=== PATIENT | male | born 1940 | race Two or more races ===

== ENCOUNTER 2022-10-05 14:40 | Inpatient (IN) | payer MEDICARE ==
[~2022-10-05] VITALS: Ht 160 cm; Wt 62.6 kg
[2022-10-05] MEDS: DEXAMETHASONE 10 MG/ML VIAL IV NR ×2 (15:45→16:45)
[2022-10-05] MEDS ORDERED: IPRATROPIUM BROMIDE (0.02%) 0.5MG/2.5ML NEB HHN NR (15:45)
[2022-10-05] MEDS ORDERED: DOXYCYCLINE HYCLATE 100 MG/VIAL IV ONE (15:45)
[2022-10-05] MEDS ORDERED: ALBUTEROL (0.5%) 2.5MG/0.5ML NEB HHN NR (15:45)
[2022-10-05 15:50] LABS: HEMATOCRIT. 42.1 % (42.0-52.0); HEMOGLOBIN. 13.6 g/dL (14.0-18.0); MEAN CORPUSCULAR HEMOGLOBIN 31.2 pg (28.0-32.0); MEAN CORPUSCULAR VOLUME 96.3 fL (80.0-94.0); MEAN PLATELET VOLUME 9.6 fl (7.4-10.4); MONOCYTES % 6.7 % (2.0-8.0); NEUTROPHILS % 84.3 % (40.0-76.0); PLATELET 138 x1000/uL (130-400); RED BLOOD CELL COUNT 4.37 mill/uL (4.7-6.1); RED CELL DISTRIBUTION WIDTH 17.8 % (11.6-14.6)
[2022-10-05] MEDS ORDERED: DOXYCYCLINE 100MG in DEXTROSE 5% WATER 100ML IV NR (16:00)
[2022-10-05 16:02] LABS: CHLORIDE 118 mEq/L (98-107)
[2022-10-05 16:16] LABS: INR 1.1; PROTHROMBIN TIME 11.9 sec (9.6-11.0)
[2022-10-05 16:22] LABS: CREATINE KINASE 91 IU/L (39-308); ETHANOL BLOOD < 10 mg/dL
[2022-10-05] MEDS: CEFTRIAXONE 2GM/50ML (ADDEASE) 50 ML IV NR ×2 (17:30→18:50)
[2022-10-06] VITALS (9 sets, daily range): BP systolic 128–166; BP diastolic 56–101
[2022-10-06 08:04] LABS: BG BASE EXCESS -12.3 mmol/L (-2.0-2.0); BG CARBOXYHEMOGLOBIN 0.3 % (0.5-1.5); BG DEOXYHEMOGLOBIN 0.9 % (0.0-5.0); BG HCO3 ACT 12.5 mmol/L (22.0-26.0); BG METHEMOGLOBIN 0.2 % (0.0-1.5); BG OXYGEN SATURATION 99.1 % (92.0-98.5); BG OXYHEMOGLOBIN 98.6 % (94.0-97.0); BG PCO2 25.9 mmHg (35.0-45.0); BG PO2 198.4 mmHg (75.0-100.0); BG SAMPLE SITE RIGHT BRACHIAL; BG TOTAL HEMOGLOBIN 12.5 g/dL (12.0-18.0); BG VENT MODE MASK - BIPAP
[2022-10-06] MEDS ORDERED: ACET250T26 MT (09:23)
[2022-10-06] MEDS ORDERED: CARB-33 MT (09:23)
[2022-10-06] MEDS ORDERED: DORZ10DR12 EACHEYE (09:29)
[2022-10-06] MEDS ORDERED: LATA2.5D14 EACHEYE (09:29)
[2022-10-06] MEDS ORDERED: BRIM5DRO6 EACHEYE (09:29)
[2022-10-06] MEDS ORDERED: DAPA10TA MT (09:29)
[2022-10-06] MEDS ORDERED: OLME40TA18 MT (09:29)
[2022-10-06] MEDS ORDERED: ACETAMINOPHEN 325MG TABLET PO PRN (10:45)
[2022-10-06] MEDS ORDERED: DOCUSATE SODIUM 100MG CAPSULE PO PRN (10:45)
[2022-10-06] MEDS: ENOXAPARIN 30MG/0.3ML SYR SUBCUT SCH (11:18)
[2022-10-06] MEDS ORDERED: DEXT 5%/0.45% NACL 500ML 500 ML IV NR (11:30)
[2022-10-06 11:44] LABS: HEMATOCRIT. 38.5 % (42.0-52.0); HEMOGLOBIN. 12.4 g/dL (14.0-18.0); MEAN CORPUSCULAR HEMOGLOBIN 31.4 pg (28.0-32.0); MEAN CORPUSCULAR VOLUME 97.2 fL (80.0-94.0); MEAN PLATELET VOLUME 9.7 fl (7.4-10.4); PLATELET 118 x1000/uL (130-400); RED BLOOD CELL COUNT 3.96 mill/uL (4.7-6.1); RED CELL DISTRIBUTION WIDTH 18.4 % (11.6-14.6)
[2022-10-06] MEDS: HYDRALAZINE 20MG/ML VIAL IV PRN (11:52)
[2022-10-06 11:54] LABS: CHLORIDE 121 mEq/L (98-107)
[2022-10-06] MEDS ORDERED: VANCOMYCIN 1G PREMIX 200 ML IV NR (12:00)
[2022-10-06] MEDS ORDERED: DEXT 5%/0.45% NACL 1000ML 1,000 ML IV SCH (12:15)
[2022-10-06] MEDS ORDERED: POTASSIUM CHLORIDE INJ 40 MEQ in DEXT 5% WATER 250 ML IV NR (13:30)
[2022-10-06] MEDS ORDERED: SODIUM BICARBONATE 8.4% 1 MEQ/ML 50ML SYR IV NR (13:30)
[2022-10-06 14:10] LABS: PLATELET ESTIMATE DECREASED
[2022-10-06] MEDS: SODIUM BICARBONATE 100 MEQ in DEXT 5%/0.45% NACL 1000ML 1,000 ML IV SCH (14:35)
[2022-10-06 17:02] LABS: CREATINE KINASE MB FRACTION 6.4 ng/mL (0.5-3.6)
[2022-10-06] MEDS: PIPERACILLIN/TAZOBACTAM 3.375 G in DEXTROSE 5% WATER 50 ML IV SCH ×2 (18:28→21:44)
[2022-10-06] MEDS ORDERED: IPRATROPIUM/ALBUTEROL 0.5-3(2.5)MG/3ML NEB HHN PRN (22:15)
[2022-10-06 23:16] LABS: CREATINE KINASE MB FRACTION 6.9 ng/mL (0.5-3.6)
[2022-10-06] MEDS: IPRATROPIUM/ALBUTEROL 0.5-3(2.5)MG/3ML NEB HHN SCH (23:17)
[2022-10-07] VITALS (14 sets, daily range): BP systolic 117–197; BP diastolic 42–90
[2022-10-07] MEDS: SODIUM BICARBONATE 100 MEQ in DEXT 5%/0.45% NACL 1000ML 1,000 ML IV SCH (04:36)
[2022-10-07] MEDS: HYDRALAZINE 20MG/ML VIAL IV PRN ×2 (08:15→21:12)
[2022-10-07] MEDS: ENOXAPARIN 30MG/0.3ML SYR SUBCUT SCH (08:15)
[2022-10-07] MEDS: PIPERACILLIN/TAZOBACTAM 3.375 G in DEXTROSE 5% WATER 50 ML IV SCH ×2 (08:16→21:12)
[2022-10-07] MEDS: IPRATROPIUM/ALBUTEROL 0.5-3(2.5)MG/3ML NEB HHN SCH ×3 (08:45→21:00)
[2022-10-07] MEDS ORDERED: KCL 20MEQ/100ML PREMIX 100 ML IV NR (11:00)
[2022-10-07] MEDS ORDERED: FUROSEMIDE 40MG/4ML VIAL IVP NR (14:45)
[2022-10-07] MEDS: VANCOMYCIN 750MG PREMIX 150 ML IV SCH (17:22)
[2022-10-07] MEDS ORDERED: CARBIDOPA/LEVODOPA 25/100MG TABLET PO SCH (22:00)
[2022-10-07] MEDS: CARBIDOPA/LEVODOPA 25/100MG TABLET PO SCH (22:33)
[2022-10-07 23:39] LABS: HEMATOCRIT. 36.4 % (42.0-52.0); HEMOGLOBIN. 12.6 g/dL (14.0-18.0); MEAN CORPUSCULAR HEMOGLOBIN 31.7 pg (28.0-32.0); MEAN CORPUSCULAR VOLUME 91.8 fL (80.0-94.0); MEAN PLATELET VOLUME 9.5 fl (7.4-10.4); RED BLOOD CELL COUNT 3.96 mill/uL (4.7-6.1); RED CELL DISTRIBUTION WIDTH 17.3 % (11.6-14.6)
[2022-10-08] VITALS (13 sets, daily range): BP systolic 138–193; BP diastolic 66–132
[2022-10-08 01:21] LABS: PLATELET ESTIMATE NORMAL
[2022-10-08 01:23] LABS: PLATELET 111 x1000/uL (130-400)
[2022-10-08] MEDS: IPRATROPIUM/ALBUTEROL 0.5-3(2.5)MG/3ML NEB HHN SCH ×4 (02:31→19:50)
[2022-10-08] MEDS: CARBIDOPA/LEVODOPA 25/100MG TABLET PO SCH ×3 (08:26→15:36)
[2022-10-08] MEDS: ENOXAPARIN 30MG/0.3ML SYR SUBCUT SCH (08:27)
[2022-10-08] MEDS: DORZOLAM/TIMOLOL 2.23/0.68% OPHTH DROPS 10ML EACHEYE SCH ×2 (08:27→16:40)
[2022-10-08] MEDS: BRIMONIDINE 0.2% OPHTH DROPS 5ML EACHEYE SCH ×2 (08:27→16:40)
[2022-10-08 09:41] LABS: HEMATOCRIT. 34.9 % (42.0-52.0); MEAN CORPUSCULAR HEMOGLOBIN 31.6 pg (28.0-32.0); MEAN CORPUSCULAR VOLUME 92.1 fL (80.0-94.0); MEAN PLATELET VOLUME 9.1 fl (7.4-10.4); PLATELET 96 x1000/uL (130-400); RED BLOOD CELL COUNT 3.79 mill/uL (4.7-6.1); RED CELL DISTRIBUTION WIDTH 17.2 % (11.6-14.6)
[2022-10-08] MEDS ORDERED: POTASSIUM CHLORIDE INJ 40 MEQ in DEXT 5% WATER 250 ML IV ONE ×2 (10:45→15:00)
[2022-10-08] MEDS: PIPERACILLIN/TAZOBACTAM 3.375 G in DEXTROSE 5% WATER 50 ML IV SCH ×2 (11:05→21:46)
[2022-10-08] MEDS: KCL 20MEQ/100ML X 2 FOR TOTAL KCL 40MEQ/200ML IV SCH ×4 (12:08→19:29)
[2022-10-08 12:45] LABS: BG BASE EXCESS 1.1 mmol/L (-2.0-2.0); BG CARBOXYHEMOGLOBIN 0.5 % (0.5-1.5); BG DEOXYHEMOGLOBIN 9.9 % (0.0-5.0); BG FRACTION INSPIRED OXYGEN 21; BG HCO3 ACT 23.3 mmol/L (22.0-26.0); BG METHEMOGLOBIN 0.4 % (0.0-1.5); BG OXYHEMOGLOBIN 89.2 % (94.0-97.0); BG PH 7.509 (7.350-7.450); BG SAMPLE SITE RIGHT RADIAL; BG TOTAL HEMOGLOBIN 12.5 g/dL (12.0-18.0); BG VENT MODE ROOM AIR
[2022-10-08 13:54] LABS: PLATELET ESTIMATE DECREASED
[2022-10-08] MEDS: VANCOMYCIN 750MG PREMIX 150 ML IV SCH (14:15)
[2022-10-08] MEDS: LATANOPROST 0.005% OPHTH DROPS 2.5ML EACHEYE SCH (21:46)
[2022-10-08] MEDS: HYDRALAZINE 20MG/ML VIAL IV PRN (22:08)
[2022-10-08] MEDS: DEXTROSE 5% WATER 1,000 ML IV SCH (22:09)
[2022-10-09] VITALS (14 sets, daily range): BP systolic 114–186; BP diastolic 54–101
[2022-10-09] MEDS: IPRATROPIUM/ALBUTEROL 0.5-3(2.5)MG/3ML NEB HHN SCH ×4 (01:50→21:49)
[2022-10-09 05:58] LABS: BASOPHILS % 0.2 % (0.0-2.0); HEMATOCRIT. 39.9 % (42.0-52.0); HEMOGLOBIN. 13.5 g/dL (14.0-18.0); LYMPHOCYTES % 9.2 % (20.0-50.0); MEAN CORPUSCULAR HEMOGLOBIN 31.7 pg (28.0-32.0); MEAN CORPUSCULAR VOLUME 93.4 fL (80.0-94.0); MEAN PLATELET VOLUME 9.3 fl (7.4-10.4); MONOCYTES % 5.5 % (2.0-8.0); NEUTROPHILS % 85.1 % (40.0-76.0); PLATELET 93 x1000/uL (130-400); RED BLOOD CELL COUNT 4.27 mill/uL (4.7-6.1)
[2022-10-09 06:08] LABS: INR 1.1; PROTHROMBIN TIME 12.1 sec (9.6-11.0)
[2022-10-09] MEDS: ONDANSETRON HCL 4MG/2ML INJ IV PRN (06:13)
[2022-10-09] MEDS: HYDRALAZINE 20MG/ML VIAL IV PRN ×2 (06:13→18:18)
[2022-10-09] MEDS: CARBIDOPA/LEVODOPA 25/100MG TABLET PO SCH ×3 (09:00→17:00)
[2022-10-09] MEDS: DORZOLAM/TIMOLOL 2.23/0.68% OPHTH DROPS 10ML EACHEYE SCH ×2 (09:34→18:18)
[2022-10-09] MEDS: BRIMONIDINE 0.2% OPHTH DROPS 5ML EACHEYE SCH ×2 (09:34→18:18)
[2022-10-09] MEDS ORDERED: CEFAZOLIN 1000MG PREMIX 50 ML IV NR (10:00)
[2022-10-09] MEDS ORDERED: POTASSIUM CHLORIDE INJ 40 MEQ in DEXT 5% WATER 500 ML IV ONE (11:00)
[2022-10-09] MEDS ORDERED: PROPOFOL 200MG/20ML VIAL IV ONE (11:29)
[2022-10-09] MEDS ORDERED: LIDOCAINE HCL 1% 10 MG/ML 10ML VIAL ONE (11:29)
[2022-10-09] MEDS ORDERED: ETOMIDATE 2MG/ML 10ML VIAL IV ONE (11:29)
[2022-10-09] MEDS: PIPERACILLIN/TAZOBACTAM 3.375 G in DEXTROSE 5% WATER 50 ML IV SCH ×2 (15:42→22:37)
[2022-10-09] MEDS: VANCOMYCIN 750MG PREMIX 150 ML IV SCH (15:42)
[2022-10-09] MEDS: DEXTROSE 5% WATER 1,000 ML IV SCH (15:43)
[2022-10-09] MEDS: LATANOPROST 0.005% OPHTH DROPS 2.5ML EACHEYE SCH (21:39)
[2022-10-10] VITALS (13 sets, daily range): BP systolic 103–175; BP diastolic 45–89
[2022-10-10] MEDS: IPRATROPIUM/ALBUTEROL 0.5-3(2.5)MG/3ML NEB HHN SCH ×4 (01:46→19:50)
[2022-10-10] MEDS: DEXTROSE 5% WATER 1,000 ML IV SCH (03:03)
[2022-10-10] MEDS: PIPERACILLIN/TAZOBACTAM 3.375 G in DEXTROSE 5% WATER 50 ML IV SCH ×3 (05:57→21:31)
[2022-10-10] MEDS: METOCLOPRAMIDE HCL 10MG/2ML VIAL IV SCH ×4 (05:58→23:29)
[2022-10-10] MEDS: HYDRALAZINE 20MG/ML VIAL IV PRN (06:01)
[2022-10-10] MEDS: CARBIDOPA/LEVODOPA 25/100MG TABLET PO SCH ×3 (09:36→16:25)
[2022-10-10] MEDS: BRIMONIDINE 0.2% OPHTH DROPS 5ML EACHEYE SCH ×2 (09:37→16:22)
[2022-10-10] MEDS: DORZOLAM/TIMOLOL 2.23/0.68% OPHTH DROPS 10ML EACHEYE SCH ×2 (09:37→16:22)
[2022-10-10 09:57] LABS: HEMATOCRIT 37.8 % (42.0-52.0); HEMOGLOBIN 12.5 g/dL (14.0-18.0); MEAN CORPUSCULAR HEMOGLOBIN 31.4 pg (28.0-32.0); MEAN CORPUSCULAR VOLUME 94.4 fL (80.0-94.0); PLATELET 85 x1000/uL (130-400); RED CELL DISTRIBUTION WIDTH 17.1 % (11.6-14.6)
[2022-10-10 10:06] LABS: CHLORIDE 122 mEq/L (98-107)
[2022-10-10] MEDS ORDERED: POTASSIUM CHLORIDE 20MEQ TABLET SR PO NR (12:34)
[2022-10-10] MEDS: VANCOMYCIN 750MG PREMIX 150 ML IV SCH (13:12)
[2022-10-10] MEDS: THIAMINE HCL 100MG TABLET PO SCH (16:22)
[2022-10-10] MEDS: LATANOPROST 0.005% OPHTH DROPS 2.5ML EACHEYE SCH (21:31)
[2022-10-11] VITALS (12 sets, daily range): BP systolic 92–165; BP diastolic 52–80
[2022-10-11] MEDS: IPRATROPIUM/ALBUTEROL 0.5-3(2.5)MG/3ML NEB HHN SCH ×4 (02:37→20:21)
[2022-10-11] MEDS: PIPERACILLIN/TAZOBACTAM 3.375 G in DEXTROSE 5% WATER 50 ML IV SCH ×3 (05:49→22:06)
[2022-10-11] MEDS: METOCLOPRAMIDE HCL 10MG/2ML VIAL IV SCH ×3 (05:49→17:33)
[2022-10-11 06:40] LABS: EOSINOPHILS % 0.6 % (0.0-5.0); HEMOGLOBIN. 11.7 g/dL (14.0-18.0); LYMPHOCYTES % 14.5 % (20.0-50.0); MEAN CORPUSCULAR HEMOGLOBIN 31.2 pg (28.0-32.0); MEAN CORPUSCULAR VOLUME 93.7 fL (80.0-94.0); MEAN PLATELET VOLUME 9.7 fl (7.4-10.4); MONOCYTES % 4.5 % (2.0-8.0); NEUTROPHILS % 80.4 % (40.0-76.0); PLATELET 74 x1000/uL (130-400); RED BLOOD CELL COUNT 3.74 mill/uL (4.7-6.1); RED CELL DISTRIBUTION WIDTH 17.5 % (11.6-14.6)
[2022-10-11 07:44] LABS: CHLORIDE 120 mEq/L (98-107)
[2022-10-11] MEDS: CARBIDOPA/LEVODOPA 25/100MG TABLET PO SCH ×3 (09:09→17:51)
[2022-10-11] MEDS: THIAMINE HCL 100MG TABLET PO SCH (09:09)
[2022-10-11] MEDS: DEXTROSE 5% WATER 1,000 ML IV SCH (09:10)
[2022-10-11] MEDS: BRIMONIDINE 0.2% OPHTH DROPS 5ML EACHEYE SCH ×2 (09:10→17:33)
[2022-10-11] MEDS: DORZOLAM/TIMOLOL 2.23/0.68% OPHTH DROPS 10ML EACHEYE SCH ×2 (09:11→17:34)
[2022-10-11] MEDS: VANCOMYCIN 750MG PREMIX 150 ML IV SCH (12:35)
[2022-10-11] MEDS ORDERED: DOCUSATE SODIUM SUGAR FREE 100MG/10ML UDC NG PRN (13:45)
[2022-10-11] MEDS: DOCUSATE SODIUM SUGAR FREE 100MG/10ML UDC NG PRN (15:42)
[2022-10-11] MEDS: LATANOPROST 0.005% OPHTH DROPS 2.5ML EACHEYE SCH (22:06)
[2022-10-12] VITALS (14 sets, daily range): BP systolic 108–200; BP diastolic 41–121
[2022-10-12] MEDS: METOCLOPRAMIDE HCL 10MG/2ML VIAL IV SCH (00:44)
[2022-10-12] MEDS: DEXTROSE 5% WATER 1,000 ML IV SCH (04:47)
[2022-10-12] MEDS: THIAMINE HCL 100MG TABLET PO SCH (08:37)
[2022-10-12] MEDS: CARBIDOPA/LEVODOPA 25/100MG TABLET PO SCH ×3 (08:37→17:54)
[2022-10-12] MEDS: DORZOLAM/TIMOLOL 2.23/0.68% OPHTH DROPS 10ML EACHEYE SCH ×2 (08:38→17:00)
[2022-10-12] MEDS: BRIMONIDINE 0.2% OPHTH DROPS 5ML EACHEYE SCH ×2 (08:38→17:00)
[2022-10-12] MEDS: DOCUSATE SODIUM SUGAR FREE 100MG/10ML UDC NG PRN (12:53)
[2022-10-12] MEDS ORDERED: GUAIFENESIN-DM 200MG-20MG/10ML UDC PO PRN (19:45)
[2022-10-12] MEDS: ONDANSETRON HCL 4MG/2ML INJ IV PRN (19:54)
[2022-10-12] MEDS: HYDRALAZINE 20MG/ML VIAL IV PRN (19:55)
[2022-10-12] MEDS: LATANOPROST 0.005% OPHTH DROPS 2.5ML EACHEYE SCH (21:00)
== END 2022-10-12 21:40 | disposition home or self-care (01) | DRG 193 ==
LOC: ER 14:40 → MICUNO 18:12 → EDBEDREQ 18:18 → EDBEDREQTM 18:19 → 5EST 10-12 14:26
PROVIDERS: ADMIT Internal Medicine; ATTEND Internal Medicine
PROC: 5A09357 Assistance with Respiratory Ventilation, Less than 24 Consecutive Hours, Continuous Positive Airway Pressure (ICD-10-PCS; principal; 2022-10-05)
PROC: 5A09357 Assistance with Respiratory Ventilation, Less than 24 Consecutive Hours, Continuous Positive Airway Pressure (ICD-10-PCS; 2022-10-06)
PROC: 0DB78ZX Excision of Stomach, Pylorus, Via Natural or Artificial Opening Endoscopic, Diagnostic (ICD-10-PCS; 2022-10-09)
PROC: 0DH63UZ Insertion of Feeding Device into Stomach, Percutaneous Approach (ICD-10-PCS; 2022-10-09)
DX: J18.9 Pneumonia, unspecified organism (principal); J96.01 Acute respiratory failure with hypoxia; E87.20 Acidosis, unspecified; N17.9 Acute kidney failure, unspecified; G93.40 Encephalopathy, unspecified; E87.0 Hyperosmolality and hypernatremia; D64.9 Anemia, unspecified; E87.6 Hypokalemia; I10 Essential (primary) hypertension; F02.80 Dementia in other diseases classified elsewhere, unspecified severity, without behavioral disturbance, psychotic disturbance, mood disturbance, and anxiety; Z20.822 Contact with and (suspected) exposure to COVID-19; R13.10 Dysphagia, unspecified; R62.7 Adult failure to thrive; R13.12 Dysphagia, oropharyngeal phase; Z87.891 Personal history of nicotine dependence; Z82.49 Family history of ischemic heart disease and other diseases of the circulatory system; K29.70 Gastritis, unspecified, without bleeding
CPT/HCPCS: 36415; 36600; 71045; 74018; 76770; 80048; 80053; 80202; 80320; 82375; 82550; 82553; 82805; 83605; 83615; 83735; 83880; 84100; 84132; 84145; 84295; 84484; 85025; 85027; 85384; 86850; 86900; 87426; 88305; 92610; 93005; 94640; 94660; 99291; A6261; C9803; J0360; J0690; J0696; J1100; J1650; J1940; J2405; J2543; J2704; J2765; J3370; J3480; J3490; J7060; J7070; G0480

== ENCOUNTER 2022-12-15 13:00 | Inpatient (IN) | payer MEDICARE ==
[~2022-12-15] VITALS: Ht 157.5 cm; Wt 55.5 kg
[~2022-12-15 13:00] MED LIST: ACET250T26 MT; BRIM5DRO6 EACHEYE; CARB-33 MT; DAPA10TA MT; DORZ10DR32 EACHEYE; LATA2.5D14 EACHEYE; OLME40TA18 MT
[2022-12-15 13:39] LABS: BASOPHILS % 0.2 % (0.0-2.0); EOSINOPHILS % 0.4 % (0.0-5.0); HEMATOCRIT. 31.7 % (42.0-52.0); HEMOGLOBIN. 9.8 g/dL (14.0-18.0); LYMPHOCYTES % 7.2 % (20.0-50.0); MEAN CORPUSCULAR VOLUME 103.6 fL (80.0-94.0); MEAN PLATELET VOLUME 9.3 fl (7.4-10.4); MONOCYTES % 5.1 % (2.0-8.0); NEUTROPHILS % 87.1 % (40.0-76.0); PLATELET 173 x1000/uL (130-400); RED BLOOD CELL COUNT 3.05 mill/uL (4.7-6.1)
[2022-12-15 13:49] LABS: CHLORIDE 129 mEq/L (98-107)
[2022-12-15 13:55] LABS: D-DIMER 4.14 mg/L FEU (<0.50); INR 1.1; PROTHROMBIN TIME 12.2 sec (9.6-11.0)
[2022-12-15] MEDS ORDERED: IPRATROPIUM/ALBUTEROL 0.5-3(2.5)MG/3ML NEB HHN ONE (14:15)
[2022-12-15] MEDS ORDERED: VANCOMYCIN 1G PREMIX 200 ML IV SCH (14:15)
[2022-12-15] MEDS ORDERED: METHYLPREDNISOLONE SOD SUCC 125 MG/2 ML VIAL IV ONE (14:15)
[2022-12-15] MEDS ORDERED: SODIUM CHLORIDE 0.9% 500 ML IV ONE (14:15)
[2022-12-15] MEDS ORDERED: CEFEPIME 1,000 MG in DEXTROSE 5% WATER 50 ML IV SCH (14:15)
[2022-12-15 15:07] LABS: BG BASE EXCESS -4.6 mmol/L (-2.0-2.0); BG CARBOXYHEMOGLOBIN 0.3 % (0.5-1.5); BG DEOXYHEMOGLOBIN 1.3 % (0.0-5.0); BG FRACTION INSPIRED OXYGEN 100; BG HCO3 ACT 20.1 mmol/L (22.0-26.0); BG METHEMOGLOBIN 0.7 % (0.0-1.5); BG OXYGEN SATURATION 98.7 % (92.0-98.5); BG OXYHEMOGLOBIN 97.7 % (94.0-97.0); BG PCO2 35.4 mmHg (35.0-45.0); BG PH 7.372 (7.350-7.450); BG PO2 157.4 mmHg (75.0-100.0); BG SAMPLE SITE LEFT BRACHIAL; BG TOTAL HEMOGLOBIN 9.8 g/dL (12.0-18.0); BG VENT MODE MASK - NRB
[2022-12-15 20:11] LABS: CLARITY URINE CLOUDY (CLEAR); COLOR URINE YELLOW (YELLOW); KETONES URINE NEGATIVE (NEGATIVE); LEUKOCYTE ESTERASE URINE 1+ (NEGATIVE); NITRITE URINE NEGATIVE (NEGATIVE); OCCULT BLOOD URINE 3+ (NEGATIVE); PH URINE 6.5 (4.5-8.0); PROTEIN URINE 2+ (NEGATIVE); SPECIFIC GRAVITY URINE 1.022 (1.005-1.030)
[2022-12-15] MEDS ORDERED: CARBIDOPA/LEVODOPA 25/250MG TABLET PEG ONE (21:15)
[2022-12-15 22:25] VITALS: BP 113/55
[2022-12-15 22:35] VITALS: BP 113/55
[2022-12-15 23:34] VITALS: BP 109/60
[2022-12-16] VITALS (7 sets, daily range): BP systolic 88–111; BP diastolic 43–62
[2022-12-16] MEDS ORDERED: DEXTROSE 50% WATER 50ML SYRINGE IV PRN (00:45)
[2022-12-16] MEDS ORDERED: NALOXONE HCL 0.4MG/ML VIAL IV PRN (01:00)
[2022-12-16] MEDS ORDERED: HYDROCODONE/ACETAMINOPHEN 5/325MG TABLET GT PRN (01:00)
[2022-12-16] MEDS: BLOOD SUGAR DIAGNOSTIC STRIP TEST SCH ×4 (01:35→18:29)
[2022-12-16] MEDS: INSULIN LISPRO 100 UNITS/ML SUBCUT SCH ×4 (01:58→18:06)
[2022-12-16] MEDS: ATORVASTATIN CALCIUM 20MG TABLET GT SCH ×2 (01:59→21:47)
[2022-12-16] MEDS: LATANOPROST 0.005% OPHTH DROPS 2.5ML BOTHEYE SCH ×2 (02:01→21:47)
[2022-12-16] MEDS: ACETAZOLAMIDE 250MG TABLET GT SCH ×2 (02:01→09:00)
[2022-12-16 06:03] LABS: HEMATOCRIT. 28.6 % (42.0-52.0); HEMOGLOBIN. 8.5 g/dL (14.0-18.0); MEAN CORPUSCULAR HEMOGLOBIN 32.6 pg (28.0-32.0); MEAN CORPUSCULAR VOLUME 109.5 fL (80.0-94.0); MEAN PLATELET VOLUME 9.8 fl (7.4-10.4); PLATELET 154 x1000/uL (130-400); RED BLOOD CELL COUNT 2.61 mill/uL (4.7-6.1); RED CELL DISTRIBUTION WIDTH 16.1 % (11.6-14.6)
[2022-12-16] MEDS: CARBIDOPA/LEVODOPA 25/250MG TABLET GT SCH ×2 (06:30→14:32)
[2022-12-16] MEDS: ENOXAPARIN 30MG/0.3ML SYR SUBCUT SCH (09:00)
[2022-12-16] MEDS: DORZOLAM/TIMOLOL 2.23/0.68% OPHTH DROPS 10ML BOTHEYE SCH ×2 (09:00→18:02)
[2022-12-16] MEDS ORDERED: ENOXAPARIN 40MG/0.4ML SYR SUBCUT SCH (09:00)
[2022-12-16] MEDS ORDERED: RYTARY GT SCH (09:00)
[2022-12-16] MEDS ORDERED: DORZOLAM/TIMOLOL 2.23/0.68% OPHTH DROPS 10ML BOTHEYE SCH (09:00)
[2022-12-16] MEDS: CEFEPIME 1,000 MG in DEXTROSE 5% WATER 50 ML IV SCH (09:00)
[2022-12-16] MEDS ORDERED: LOSARTAN POTASSIUM 100 MG TABLET GT SCH (09:00)
[2022-12-16] MEDS: BRIMONIDINE 0.2% OPHTH DROPS 5ML BOTHEYE SCH ×2 (09:00→18:02)
[2022-12-16] MEDS: PANTOPRAZOLE SODIUM 40 MG/VIAL IV SCH (09:00)
[2022-12-16] MEDS ORDERED: ATOR20TA65 GT (10:22)
[2022-12-16] MEDS ORDERED: CARB1CAP GT (10:24)
[2022-12-16] MEDS: AZITHROMYCIN 500 MG in DEXT 5% WATER 250 ML IV SCH (12:54)
[2022-12-16 13:57] LABS: BG BASE EXCESS -7.6 mmol/L (-2.0-2.0); BG CARBOXYHEMOGLOBIN 0.3 % (0.5-1.5); BG FRACTION INSPIRED OXYGEN 32; BG HCO3 ACT 17.2 mmol/L (22.0-26.0); BG METHEMOGLOBIN 0.4 % (0.0-1.5); BG OXYHEMOGLOBIN 97.3 % (94.0-97.0); BG PH 7.349 (7.350-7.450); BG PO2 125.7 mmHg (75.0-100.0); BG SAMPLE SITE RIGHT RADIAL; BG TOTAL HEMOGLOBIN 8.5 g/dL (12.0-18.0); BG VENT MODE NASAL CANNULA
[2022-12-16] MEDS ORDERED: POTASSIUM CHLORIDE 20MEQ TABLET SR PO NR (15:00)
[2022-12-16 16:22] LABS: PLATELET ESTIMATE NORMAL
[2022-12-16] MEDS ORDERED: CARB1CAP PO (16:40)
[2022-12-16] MEDS: DEXT 5%/0.45% NACL 1000ML 1,000 ML IV SCH (18:02)
[2022-12-16] MEDS: RYTARY PO SCH (18:20)
[2022-12-17] MEDS: BLOOD SUGAR DIAGNOSTIC STRIP TEST SCH ×4 (00:16→18:48)
[2022-12-17] MEDS: INSULIN LISPRO 100 UNITS/ML SUBCUT SCH ×4 (00:26→18:46)
[2022-12-17] MEDS ORDERED: POTASSIUM CHLORIDE 20MEQ/PACKET GT NR (01:45)
[2022-12-17 04:00] VITALS: BP 123/57
[2022-12-17 08:00] VITALS: BP 126/67
[2022-12-17 08:26] LABS: HEPATITIS B SURFACE ANTIGEN NEGATIVE
[2022-12-17 09:17] LABS: HEMATOCRIT. 26.6 % (42.0-52.0); HEMOGLOBIN. 8.2 g/dL (14.0-18.0); MEAN CORPUSCULAR HEMOGLOBIN 31.9 pg (28.0-32.0); MEAN CORPUSCULAR VOLUME 103.9 fL (80.0-94.0); PLATELET 145 x1000/uL (130-400); RED BLOOD CELL COUNT 2.56 mill/uL (4.7-6.1); RED CELL DISTRIBUTION WIDTH 15.8 % (11.6-14.6)
[2022-12-17] MEDS: CEFEPIME 1,000 MG in DEXTROSE 5% WATER 50 ML IV SCH (10:32)
[2022-12-17] MEDS: DORZOLAM/TIMOLOL 2.23/0.68% OPHTH DROPS 10ML BOTHEYE SCH ×2 (11:29→16:50)
[2022-12-17] MEDS: RYTARY PO SCH ×2 (11:29→16:51)
[2022-12-17] MEDS: BRIMONIDINE 0.2% OPHTH DROPS 5ML BOTHEYE SCH ×2 (11:30→16:50)
[2022-12-17] MEDS: PANTOPRAZOLE SODIUM 40 MG/VIAL IV SCH (11:40)
[2022-12-17] MEDS: ENOXAPARIN 30MG/0.3ML SYR SUBCUT SCH (11:40)
[2022-12-17 12:00] VITALS: BP 141/65
[2022-12-17] MEDS: AZITHROMYCIN 500 MG in DEXT 5% WATER 250 ML IV SCH (12:00)
[2022-12-17 13:23] LABS: PLATELET ESTIMATE NORMAL
[2022-12-17] MEDS: DEXT 5%/0.45% NACL 1000ML 1,000 ML IV SCH (14:53)
[2022-12-17 16:00] VITALS: BP 120/56
[2022-12-17] MEDS ORDERED: SORBITOL 70% SOLN 30ML PO NR (17:25)
[2022-12-17] MEDS ORDERED: POTASSIUM CHLORIDE 20MEQ/PACKET PO NR (17:30)
[2022-12-17 20:30] VITALS: BP 122/81
[2022-12-17] MEDS ORDERED: BLOOD SUGAR DIAGNOSTIC STRIP TEST SCH (21:00)
[2022-12-17] MEDS: ATORVASTATIN CALCIUM 20MG TABLET GT SCH (21:27)
[2022-12-17] MEDS: LATANOPROST 0.005% OPHTH DROPS 2.5ML BOTHEYE SCH (21:27)
[2022-12-18] VITALS: BP_SYST 133; BP_SYST 151; BP_DIAS 61; BP_DIAS 65
[2022-12-18 04:00] VITALS: BP 133/58
[2022-12-18] MEDS: BLOOD SUGAR DIAGNOSTIC STRIP TEST SCH ×4 (06:12→18:00)
[2022-12-18 06:14] LABS: HEMATOCRIT. 26.2 % (42.0-52.0); MEAN CORPUSCULAR HEMOGLOBIN 32.7 pg (28.0-32.0); MEAN CORPUSCULAR VOLUME 106.8 fL (80.0-94.0); MEAN PLATELET VOLUME 10.2 fl (7.4-10.4); PLATELET 118 x1000/uL (130-400); RED BLOOD CELL COUNT 2.45 mill/uL (4.7-6.1); RED CELL DISTRIBUTION WIDTH 16.2 % (11.6-14.6)
[2022-12-18 08:00] VITALS: BP 142/68
[2022-12-18] MEDS: ENOXAPARIN 30MG/0.3ML SYR SUBCUT SCH (10:40)
[2022-12-18] MEDS: PANTOPRAZOLE SODIUM 40 MG/VIAL IV SCH (10:40)
[2022-12-18] MEDS: INSULIN LISPRO 100 UNITS/ML SUBCUT SCH ×4 (10:43→17:50)
[2022-12-18] MEDS: RYTARY PO SCH ×2 (10:50→17:48)
[2022-12-18] MEDS: LACTULOSE 20G/30ML UDC PO SCH (10:50)
[2022-12-18] MEDS: DORZOLAM/TIMOLOL 2.23/0.68% OPHTH DROPS 10ML BOTHEYE SCH ×2 (10:50→17:50)
[2022-12-18] MEDS: BRIMONIDINE 0.2% OPHTH DROPS 5ML BOTHEYE SCH ×2 (10:50→17:49)
[2022-12-18] MEDS: CEFEPIME 1,000 MG in DEXTROSE 5% WATER 50 ML IV SCH (10:51)
[2022-12-18 12:00] VITALS: BP 130/57
[2022-12-18] MEDS: AZITHROMYCIN 500 MG in DEXT 5% WATER 250 ML IV SCH (12:36)
[2022-12-18 15:31] LABS: PLATELET ESTIMATE SLIGHTLY DECREASED
[2022-12-18 15:59] LABS: CREATINE KINASE 46 IU/L (39-308)
[2022-12-18 16:00] VITALS: BP 114/56
[2022-12-18 20:00] VITALS: BP 95/52
[2022-12-18] MEDS: LATANOPROST 0.005% OPHTH DROPS 2.5ML BOTHEYE SCH (20:47)
[2022-12-18] MEDS: ATORVASTATIN CALCIUM 20MG TABLET GT SCH (20:47)
[2022-12-19] VITALS: BP 118/60
[2022-12-19] LABS: CREATINE KINASE 78 IU/L (39-308)
[2022-12-19] MEDS: BLOOD SUGAR DIAGNOSTIC STRIP TEST SCH ×4 (00:34→18:31)
[2022-12-19] MEDS: INSULIN LISPRO 100 UNITS/ML SUBCUT SCH ×4 (00:34→18:31)
[2022-12-19 04:00] VITALS: BP 112/44
[2022-12-19 07:53] LABS: BASOPHILS % 0.1 % (0.0-2.0); EOSINOPHILS % 0.7 % (0.0-5.0); HEMATOCRIT. 25.3 % (42.0-52.0); HEMOGLOBIN. 8.2 g/dL (14.0-18.0); MEAN CORPUSCULAR HEMOGLOBIN 32.7 pg (28.0-32.0); MEAN CORPUSCULAR VOLUME 101.2 fL (80.0-94.0); MEAN PLATELET VOLUME 10.4 fl (7.4-10.4); MONOCYTES % 3.5 % (2.0-8.0); NEUTROPHILS % 87.7 % (40.0-76.0); PLATELET 116 x1000/uL (130-400); RED CELL DISTRIBUTION WIDTH 15.8 % (11.6-14.6)
[2022-12-19 08:00] VITALS: BP 148/76
[2022-12-19] MEDS: PANTOPRAZOLE SODIUM 40 MG/VIAL IV SCH (09:05)
[2022-12-19] MEDS: LACTULOSE 20G/30ML UDC PO SCH (09:06)
[2022-12-19] MEDS: ENOXAPARIN 30MG/0.3ML SYR SUBCUT SCH (09:06)
[2022-12-19] MEDS: DEXTROSE 5% WATER 1,000 ML IV SCH (09:07)
[2022-12-19] MEDS: RYTARY PO SCH ×2 (09:32→17:59)
[2022-12-19] MEDS: DORZOLAM/TIMOLOL 2.23/0.68% OPHTH DROPS 10ML BOTHEYE SCH ×2 (09:32→18:00)
[2022-12-19] MEDS: BRIMONIDINE 0.2% OPHTH DROPS 5ML BOTHEYE SCH ×2 (09:32→17:59)
[2022-12-19] MEDS: CEFEPIME 1,000 MG in DEXTROSE 5% WATER 50 ML IV SCH (09:39)
[2022-12-19] MEDS: AZITHROMYCIN 500 MG in DEXT 5% WATER 250 ML IV SCH (11:17)
[2022-12-19] MEDS ORDERED: POTASSIUM CHLORIDE INJ 40 MEQ in DEXT 5% WATER 250 ML IV ONE (11:45)
[2022-12-19 12:13] VITALS: BP 120/63
[2022-12-19] MEDS: KCL 20MEQ/100ML X 2 FOR TOTAL KCL 40MEQ/200ML IV SCH ×2 (12:25→16:57)
[2022-12-19 16:00] VITALS: BP 135/65
[2022-12-19] MEDS: MICAFUNGIN 100 MG in SODIUM CHLORIDE 0.9% 100 ML IV SCH (16:32)
[2022-12-19 20:00] VITALS: BP 152/79
[2022-12-19] MEDS: ATORVASTATIN CALCIUM 20MG TABLET GT SCH (22:39)
[2022-12-20] VITALS: BP 150/79
[2022-12-20] MEDS: INSULIN LISPRO 100 UNITS/ML SUBCUT SCH ×4 (02:19→17:23)
[2022-12-20 04:00] VITALS: BP 148/80
[2022-12-20 05:46] LABS: BASOPHILS % 0.2 % (0.0-2.0); EOSINOPHILS % 2.5 % (0.0-5.0); HEMATOCRIT. 24.5 % (42.0-52.0); HEMOGLOBIN. 7.9 g/dL (14.0-18.0); LYMPHOCYTES % 10.1 % (20.0-50.0); MEAN CORPUSCULAR HEMOGLOBIN 32.5 pg (28.0-32.0); MEAN CORPUSCULAR VOLUME 101.3 fL (80.0-94.0); MEAN PLATELET VOLUME 10.8 fl (7.4-10.4); NEUTROPHILS % 83.2 % (40.0-76.0); PLATELET 102 x1000/uL (130-400); RED BLOOD CELL COUNT 2.42 mill/uL (4.7-6.1); RED CELL DISTRIBUTION WIDTH 15.8 % (11.6-14.6)
[2022-12-20 08:00] VITALS: BP 127/61
[2022-12-20] MEDS: RYTARY PO SCH ×2 (09:41→17:00)
[2022-12-20] MEDS: PANTOPRAZOLE SODIUM 40 MG/VIAL IV SCH (09:41)
[2022-12-20] MEDS: BRIMONIDINE 0.2% OPHTH DROPS 5ML BOTHEYE SCH ×2 (09:41→17:00)
[2022-12-20] MEDS: DORZOLAM/TIMOLOL 2.23/0.68% OPHTH DROPS 10ML BOTHEYE SCH ×2 (09:41→17:00)
[2022-12-20] MEDS: CEFEPIME 1,000 MG in DEXTROSE 5% WATER 50 ML IV SCH (09:42)
[2022-12-20] MEDS: ENOXAPARIN 30MG/0.3ML SYR SUBCUT SCH (09:42)
[2022-12-20] MEDS: LACTULOSE 20G/30ML UDC PO SCH (09:42)
[2022-12-20 12:00] VITALS: BP 130/56
[2022-12-20] MEDS: AZITHROMYCIN 500 MG in DEXT 5% WATER 250 ML IV SCH (12:01)
[2022-12-20] MEDS: DEXTROSE 5% WATER 1,000 ML IV SCH (12:02)
[2022-12-20] MEDS: BLOOD SUGAR DIAGNOSTIC STRIP TEST SCH ×2 (13:38→18:25)
[2022-12-20] MEDS: MICAFUNGIN 100 MG in SODIUM CHLORIDE 0.9% 100 ML IV SCH (14:10)
[2022-12-20 16:00] VITALS: BP 117/59
[2022-12-20 20:00] VITALS: BP 144/66
[2022-12-20] MEDS: LATANOPROST 0.005% OPHTH DROPS 2.5ML BOTHEYE SCH ×2 (21:00→22:02)
[2022-12-20] MEDS: ATORVASTATIN CALCIUM 20MG TABLET GT SCH (22:02)
[2022-12-21] VITALS (9 sets, daily range): BP systolic 84–149; BP diastolic 51–85
[2022-12-21] MEDS: BLOOD SUGAR DIAGNOSTIC STRIP TEST SCH ×3 (01:00→12:22)
[2022-12-21] MEDS: INSULIN LISPRO 100 UNITS/ML SUBCUT SCH ×3 (01:24→12:16)
[2022-12-21] MEDS: DEXTROSE 5% WATER 1,000 ML IV SCH ×2 (01:25→09:15)
[2022-12-21] MEDS ORDERED: LIDOCAINE HCL 1% 10 MG/ML 10ML VIAL ONE (07:17)
[2022-12-21 07:32] LABS: BASOPHILS % 0.2 % (0.0-2.0); EOSINOPHILS % 2.6 % (0.0-5.0); HEMATOCRIT. 23.3 % (42.0-52.0); HEMOGLOBIN. 7.5 g/dL (14.0-18.0); LYMPHOCYTES % 13.3 % (20.0-50.0); MEAN CORPUSCULAR HEMOGLOBIN 32.3 pg (28.0-32.0); MEAN PLATELET VOLUME 10.9 fl (7.4-10.4); NEUTROPHILS % 77.9 % (40.0-76.0); PLATELET 100 x1000/uL (130-400); RED BLOOD CELL COUNT 2.31 mill/uL (4.7-6.1); RED CELL DISTRIBUTION WIDTH 15.4 % (11.6-14.6)
[2022-12-21] MEDS ORDERED: IOHEXOL-300 50 ML BOTTLE IV ONE (07:56)
[2022-12-21] MEDS: LACTULOSE 20G/30ML UDC PO SCH (09:11)
[2022-12-21] MEDS: CEFEPIME 1,000 MG in DEXTROSE 5% WATER 50 ML IV SCH (09:11)
[2022-12-21] MEDS: ENOXAPARIN 30MG/0.3ML SYR SUBCUT SCH (09:11)
[2022-12-21] MEDS: RYTARY PO SCH (09:11)
[2022-12-21] MEDS: DORZOLAM/TIMOLOL 2.23/0.68% OPHTH DROPS 10ML BOTHEYE SCH (09:12)
[2022-12-21] MEDS: BRIMONIDINE 0.2% OPHTH DROPS 5ML BOTHEYE SCH (09:12)
[2022-12-21] MEDS: PANTOPRAZOLE SODIUM 40 MG/VIAL IV SCH (09:14)
[2022-12-21] MEDS: MICAFUNGIN 100 MG in SODIUM CHLORIDE 0.9% 100 ML IV SCH (13:22)
[2022-12-21] MEDS ORDERED: FLUC200T51 GT (20:41)
== END 2022-12-21 19:20 | disposition hospice, home (50) | DRG 871 ==
LOC: ER 13:00 → EDBEDREQ 17:46 → EDBEDREQTM 17:46 → EDBEDREQSVC 17:46 → 3WST 21:13 → EDBEDREQSVC 21:16 → EDBEDREQTM 21:38
PROVIDERS: ADMIT Internal Medicine; ATTEND Internal Medicine
PROC: 02HV33Z Insertion of Infusion Device into Superior Vena Cava, Percutaneous Approach (ICD-10-PCS; principal; 2022-12-21)
PROC: B518ZZA Fluoroscopy of Superior Vena Cava, Guidance (ICD-10-PCS; 2022-12-21)
PROC: B548ZZA Ultrasonography of Superior Vena Cava, Guidance (ICD-10-PCS; 2022-12-21)
DX: B37.7 Candidal sepsis (principal); J18.9 Pneumonia, unspecified organism; J96.01 Acute respiratory failure with hypoxia; E87.0 Hyperosmolality and hypernatremia; N17.9 Acute kidney failure, unspecified; E87.20 Acidosis, unspecified; N13.6 Pyonephrosis; E87.1 Hypo-osmolality and hyponatremia; I12.9 Hypertensive chronic kidney disease with stage 1 through stage 4 chronic kidney disease, or unspecified chronic kidney disease; E11.22 Type 2 diabetes mellitus with diabetic chronic kidney disease; N18.9 Chronic kidney disease, unspecified; E87.6 Hypokalemia; K56.41 Fecal impaction; E87.8 Other disorders of electrolyte and fluid balance, not elsewhere classified; E11.65 Type 2 diabetes mellitus with hyperglycemia; R80.9 Proteinuria, unspecified; D53.9 Nutritional anemia, unspecified; R74.01 Elevation of levels of liver transaminase levels; Z20.822 Contact with and (suspected) exposure to COVID-19; F02.80 Dementia in other diseases classified elsewhere, unspecified severity, without behavioral disturbance, psychotic disturbance, mood disturbance, and anxiety; G20 Parkinson's disease; R13.12 Dysphagia, oropharyngeal phase; E78.5 Hyperlipidemia, unspecified; K80.20 Calculus of gallbladder without cholecystitis without obstruction; Z86.73 Personal history of transient ischemic attack (TIA), and cerebral infarction without residual deficits; Z79.899 Other long term (current) drug therapy; Z82.49 Family history of ischemic heart disease and other diseases of the circulatory system; Z87.01 Personal history of pneumonia (recurrent); Z93.1 Gastrostomy status; Z87.891 Personal history of nicotine dependence
CPT/HCPCS: 36415; 36573; 36600; 70551; 71045; 71250; 74176; 76700; 76770; 78580; 80048; 80053; 80076; 81003; 82150; 82375; 82550; 82805; 82962; 83036; 83605; 83735; 83880; 84100; 84145; 84478; 84484; 85025; 85379; 86705; 86709; 86803; 87106; 87340; 87426; 93005; 93306; 93970; 94640; 99291; A6261; C1725; C9113; C9803; J0456; J0692; J1650; J1815; J2248; J2930; J3370; J3480; J3490; J7040; J7050; J7060; J7070; Q9967